=== PATIENT | female | born 1950 | race Caucasian/White ===

== ENCOUNTER → 2016-06-11 | Outpatient (CLI) | payer BC ==
[~2016-06-11] MED LIST: CHOLTAB3 PO; CPRDOTS OT
--- NOTE | 2016-06-11 16:45 | MAMMOGRAPHY REPORT ---
BILATERAL DIGITAL SCREENING MAMMOGRAM TOMOSYNTHESIS WITH CAD: 06/11/2016 CLINICAL HISTORY: Routine screening. Patient has no complaints. TECHNIQUE: Breast tomosynthesis in addition to standard 2D mammography was performed. Current study was also evaluated with a Computer Aided Detection (CAD) system. COMPARISON: Comparison is made to exams dated: 06/04/2015 mammogram, 05/03/2014 mammogram, 05/05/2011 bud mogram, and 05/06/2009 mammogram - [facility]. BREAST COMPOSITION: There are scattered areas of fibroglandular density in both breasts. FINDINGS: No suspicious masses, calcifications, or areas of architectural distortion are noted in e ither breast. There has been no significant interval change compared to prior exams. Scattered bilat eral benign-appearing calcifications are not significantly changed. IMPRESSION: ACR BI-RADS CATEGORY 2: BENIGN There is no mammographic evidence of malignancy. A 1 year screening mammogram is recommended. The p atient will receive written notification of the results. Approximately 10% of breast cancers are not detected with mammography. A negative mammographic repor t should not delay biopsy if a clinically suggestive mass is present. Denita Unger M.D. ah/:06/11/2016 16:08:22 Warehouse Administrative Assistant: Anna LLANES(Rusty)(M), [facility] letter sent: Normal 1/2 BI-RADS Code: ACR BI-RADS Category 2: Benign
== END | disposition home or self-care (01) ==
LOC: C.MAMM 15:07
PROVIDERS: ATTEND Family Medicine
DX: Z12.31 Encounter for screening mammogram for malignant neoplasm of breast (principal)

== ENCOUNTER → 2016-10-29 | Outpatient (CLI) | payer BC ==
[2016-10-29 17:24] LABS: ALT/SGPT 43 U/L (12-78); BLOOD UREA NITROGEN 16 mg/dl (7-18); BUN/CREATININE RATIO 16.4 (10-20); CALCIUM 9.4 mg/dl (8.5-10.1); CARBON DIOXIDE 27 mmol/L (21-32); CHLORIDE 105 mmol/L (98-107); CHOLESTEROL 208 mg/dl (0-200); GLUCOSE 80 mg/dl (70-99); POTASSIUM 4.2 mmol/L (3.5-5.1); SODIUM 139 mmol/L (136-145)
[2016-10-29 17:37] LABS: ALB/GLOB RATIO 0.8 (0.9-2); ALKALINE PHOSPHATASE 84 U/L (45-117); AST/SGOT 22 U/L (15-37); CHOLESTEROL/HDL RATIO 4.2; HDL CHOLESTEROL 50 mg/dl; LDL CHOLESTEROL CALCULATED 115 mg/dl; TRIGLYCERIDES 213 mg/dl (0-150); VERY LOW DENSITY LIPOPROT CALC 43 mg/dl
[2016-10-30 05:44] LABS: ESTIMATED AVERAGE GLUCOSE 120 mg/dl; HA1C FLAG Normal (Normal)
== END | disposition home or self-care (01) ==
LOC: C.LABBC 14:24
PROVIDERS: ATTEND Family Medicine
DX: E78.5 Hyperlipidemia, unspecified (principal); R73.03 Prediabetes; E03.9 Hypothyroidism, unspecified; E55.9 Vitamin D deficiency, unspecified

== ENCOUNTER → 2017-03-22 | Outpatient (CLI) | payer BC ==
[2017-03-22 11:27] LABS: ESTIMATED AVERAGE GLUCOSE 120 mg/dl; HA1C FLAG Normal (Normal)
[2017-03-22 11:39] LABS: ALB/GLOB RATIO 0.8 (0.9-2); ALKALINE PHOSPHATASE 94 U/L (45-117); ALT/SGPT 48 U/L (12-78); AST/SGOT 30 U/L (15-37); BLOOD UREA NITROGEN 22 mg/dl (7-18); BUN/CREATININE RATIO 23.7 (10-20); CALCIUM 8.7 mg/dl (8.5-10.1); CARBON DIOXIDE 26 mmol/L (21-32); CHLORIDE 105 mmol/L (98-107); CREATININE 0.94 mg/dl (0.60-1.20); GLUCOSE 98 mg/dl (70-99); HDL CHOLESTEROL 55 mg/dl; POTASSIUM 4.2 mmol/L (3.5-5.1); SODIUM 140 mmol/L (136-145)
[2017-03-22 11:51] LABS: CHOLESTEROL 216 mg/dl (0-200); CHOLESTEROL/HDL RATIO 3.9; LDL CHOLESTEROL CALCULATED 120 mg/dl; TRIGLYCERIDES 204 mg/dl (0-150); VERY LOW DENSITY LIPOPROT CALC 41 mg/dl
== END | disposition home or self-care (01) ==
LOC: C.LABBC 07:22
PROVIDERS: ATTEND Nurse Practitioner Family
DX: R70.0 Elevated erythrocyte sedimentation rate (principal); E78.5 Hyperlipidemia, unspecified; R73.03 Prediabetes; E03.9 Hypothyroidism, unspecified; E55.9 Vitamin D deficiency, unspecified

== ENCOUNTER → 2017-05-03 | Outpatient (CLI) | payer BC | END | disposition home or self-care (01) | LOC: C.MAMM 08:03 | PROVIDERS: ATTEND Family Medicine | DX: M81.0 Age-related osteoporosis without current pathological fracture (principal) ==

== ENCOUNTER → 2017-06-14 | Outpatient (CLI) | payer BC ==
--- NOTE | 2017-06-15 15:23 | MAMMOGRAPHY REPORT ---
BILATERAL DIGITAL SCREENING MAMMOGRAM TOMOSYNTHESIS WITH CAD: 06/14/2017 CLINICAL HISTORY: Routine screening. Patient has no complaints. TECHNIQUE: Breast tomosynthesis in addition to standard 2D mammography was performed. Current study was also evaluated with a Computer Aided Detection (CAD) system. COMPARISON: Comparison is made to exams dated: 06/11/2016 mammogram, 06/04/2015 mammogram, 05/03/2014 bud mogram, 05/05/2011 mammogram, 05/06/2009 mammogram - [facility], and 10/26/2007. BREAST COMPOSITION: There are scattered areas of fibroglandular density in both breasts. FINDINGS: The parenchymal pattern is similar to prior mammograms. There are scattered benign-appear ing round calcifications in the breasts. No developing mass, architectural distortion or cluster of suspicious microcalcifications is seen. IMPRESSION: ACR BI-RADS CATEGORY 2: BENIGN There is no mammographic evidence of malignancy. A 1 year screening mammogram is recommended. The pa tient will receive written notification of the results. Approximately 10% of breast cancers are not detected with mammography. A negative mammographic report should not delay biopsy if a clinically suggestive mass is present. Hannah Damico M.D. ay/:06/14/2017 17:29:15 Taxi Cab Driver: Mariah LLANES(Rusty)(Nancie), [facility] letter sent: Normal 1/2 BI-RADS Code: ACR BI-RADS Category 2: Benign
== END | disposition home or self-care (01) ==
LOC: C.MAMM 10:39
PROVIDERS: ATTEND Family Medicine
DX: Z12.31 Encounter for screening mammogram for malignant neoplasm of breast (principal)

== ENCOUNTER → 2017-09-14 | Outpatient (CLI) | payer BC ==
[2017-09-14 11:37] LABS: ALBUMIN 3.6 gm/dl (3.4-5.0); ALKALINE PHOSPHATASE 83 U/L (45-117); ALT/SGPT 55 U/L (12-78); AST/SGOT 36 U/L (15-37); BLOOD UREA NITROGEN 25 mg/dl (7-18); CALCIUM 9.2 mg/dl (8.5-10.1); CARBON DIOXIDE 26 mmol/L (21-32); CHOLESTEROL 236 mg/dl (0-200); CREATININE 1.03 mg/dl (0.60-1.20); GLUCOSE 99 mg/dl (70-99); LDL CHOLESTEROL CALCULATED 132 mg/dl; POTASSIUM 4.2 mmol/L (3.5-5.1); SODIUM 140 mmol/L (136-145); TOTAL PROTEIN 8.3 gm/dl (6.4-8.2)
[2017-09-14 12:03] LABS: HEMOGLOBIN A1C 5.8 % (4.5-5.6)
== END | disposition home or self-care (01) ==
LOC: C.LABBC 08:51
PROVIDERS: ATTEND Family Medicine
DX: E78.5 Hyperlipidemia, unspecified (principal); E03.9 Hypothyroidism, unspecified; M81.0 Age-related osteoporosis without current pathological fracture; R73.03 Prediabetes; E55.9 Vitamin D deficiency, unspecified

== ENCOUNTER 2018-10-24 10:53 | Observation (INO) ==
--- NOTE | 2018-10-12 10:02 | PAT Medication Instructions ---
Medication Instructions Date of Service October 12, 2018 Home Medications ketoconazole 1 applic TOPICAL Q3D NEEDED mv-mn-folic ac-vit K-herb 289 [Alive Once Daily Women 50 Plus] 2 tab PO QAM zq-mm-xxhw-FA-herbal cmplx#190 [Vitamin D3 Complete] 1 tab PO BID STOP taking 24 hours before surgery ketoconazole 1 applic TOPICAL Q3D NEEDED DO NOT take the morning of surgery mv-mn-folic ac-vit K-herb 289 [Alive Once Daily Women 50 Plus] 2 tab PO QAM ku-qj-rkkl-FA-herbal cmplx#190 [Vitamin D3 Complete] 1 tab PO BID Take morning of surgery NOTHING TO EAT OR DRINK AFTER MIDNIGHT Other Notes If you have any questions please call us at [phone] or [phone] or [phone] or [phone]
--- NOTE | 2018-10-12 14:26 | Anesthesiology Consultation ---
Date of Service October 12, 2018 Assessment & Plan (1) Encounter for pre-operative examination: Chart Review Chart Review: Acceptable Risk for Surgery and Patient seen in Pre Admission Testing Consults Requested none Teaching & Discussion Pre-Anesthesia Teaching/Discussion Notes: Instructed NPO after midnight before surgery, except medications with 15 cc of water. Medication instructions provided according to the PAT guidelines. History Surgery Operation Date: 10/24/18 10:25 Proposed Procedures p Transurethral Resection Bladder Tumor, With or Without Multiple Cup Biopsies, Possible Mitomyocin C - Triston Mcdonald II, DO Height/Weight Height: 5 ft 3 in Weight: 80.286 kg Allergies Allergy/AdvReac Type Severity Reaction Status Date / Time No Known Allergies Allergy Mild NONE Verified 10/11/18 13:43 Medications Home Medications Medication Instructions Recorded Confirmed Last Taken ketoconazole 1 applic TOPICAL Q3D PRN 10/11/18 10/11/18 Unknown mv-mn-folic ac-vit K-herb 289 2 tab PO QAM 10/11/18 10/11/18 Unknown [Alive Once Daily Women 50 Plus] im-zt-auhg-FA-herbal cmplx#190 1 tab PO BID 10/11/18 10/11/18 Unknown [Vitamin D3 Complete] Past Medical History Medical History Hx of vertigo Osteopenia Urinary urgency Exercise / Class Metabolic Activity II 4-5 Yardwork/Stairs/Walk up hill (Tries to do 30 minutes of walking, stretching, etc per day. Able to climb FOS. Denies CP or SOB. ) Past Surgical History Surgical History History of surgery REMOVAL LIPOMA BACK Hx of appendectomy Hx of cholecystectomy 02/07/12 - 7.5mm ETT Hx of total hysterectomy Past Anesthesia History No Hx of Anesthesia Complications and No Family Hx of Anesthesia Complications Does state that she is sensitive to anesthesia and needs lower doses and wakes up slowly. History of PONV No Hx of PONV and No Hx of Motion Sickness Social History Smoking Status: Never smoker Do You Dip or Chew Tobacco: No Hx Alcohol Use: No Hx Substance Use: No Review of Systems Patient denies chest pain, shortness of breath, dyspnea on exertion, joint pain, reflux, cough, wheezing, palpitations. Physical Exam Vital Signs BP: 128/84 P: 77 R: 16 T: 98.5 SPO2: 96% on RA Constitutional + obese ENMT Mouth: + macroglossia Thyromental Distance: > or= 3.5 Finger Breadths (4) Mallampati Class: II Neck normal visual inspection and trachea midline; neck extension not limited Respiratory normal respiratory effort Auscultation: lungs clear to auscultation bilaterally Cardiovascular Rate/Rhythm: regular rate and regular rhythm Heart Sounds: no murmur Vessels: no carotid bruit Neurologic moves all extremities Psychiatric Orientation: alert and oriented x 3 Testing Laboratory Results 10/12/18 13:54 10/12/18 13:54 Electrocardiogram Date: 10/12/18 Findings: + NSR @ (71) Incomplete RBBB When compared with ECG of 02/01/12, Nonspecific T wave abnormality no longer evident in anterior leads. Chest X-Ray Date: 10/12/18 Findings: + NAD
[2018-10-12 14:51] LABS: Basophils # (auto) 0.08 K/uL (0-0.2); Basophils % (auto) 1.7 %; Eosinophils # (auto) 0.26 K/uL (0-0.5); Eosinophils % (auto) 5.4 %; Hematocrit (blood only) 40.7 % (37-47); Immature Granulocytes # (auto) 0.01 K/uL (0.00-0.02); Immature Granulocytes % (auto) 0.2 %; Lymphocytes # (auto) 1.68 K/uL (1.2-3.4); Lymphocytes % (auto) 35.1 %; Mean Corpuscular Hgb Conc 34.4 g/dL (32-36); Mean Corpuscular Volume 91.3 fL (80-100); Mean Platelet Volume 9.9 fL (7.4-10.4); Monocytes # (auto) 0.58 K/uL (0.11-0.59); Monocytes % (auto) 12.1 %; Neutrophils # (auto) 2.17 K/uL (1.4-6.5); Neutrophils % (auto) 45.5 %; Platelet Count 270 K/uL (130-400); RDW Coefficient of Variation 12.7 % (11.5-14.5); RDW Standard Deviation 42.6 fL (36.4-46.3); Red Blood Count 4.46 M/uL (4.2-5.4); White Blood Count 4.78 K/uL (4.8-10.8)
[2018-10-12 14:58] LABS: BUN Creatinine Ratio 23.7 (10-20); Calcium 9.4 mg/dl (8.5-10.1); Creatinine Clr Calc Pharmacy 51.5 ml/min; Est GFR (African American) 61.9; Est GFR (Non-African American) 53.5; Potassium 4.3 mmol/L (3.5-5.1)
--- NOTE | 2018-10-12 14:58 | XRay Report ---
XR chest Pre-admission PA/Lat CLINICAL HISTORY: Preoperative evaluation COMPARISON STUDY: No previous studies for comparison. FINDINGS: Lung volumes are normal. There is no pneumothorax or pleural effusion. There is no consolid ation or evidence for pulmonary edema. Cardiac size is normal. Mediastinal contours are unremarkable. There are cholecystectomy clips. IMPRESSION: No acute cardiopulmonary findings. Electronically signed by: Morro Pham M.D. 10/12/2018 2:57 PM
[~2018-10-24 10:53] MED LIST changes: -CHOLTAB3 PO; +CIPROFLOXACIN 400 MG/200 ML BAG IV SCH; -CPRDOTS OT; +LR 15ML/HR IV SCH; +OR USE ONLY INSTIL SCH
[2018-10-24] MEDS ORDERED: MIDAZOLAM HCL 1 MG/ML 2ML VIAL ONE (11:08)
[2018-10-24] MEDS ORDERED: fentaNYL citrate 100 MCG/2 ML VIAL ONE (11:09)
[2018-10-24] MEDS ORDERED: LIDOCAINE HCL 2% 2 ML VIAL/AMP(20MG/ML) INFIL ONE (11:10)
[2018-10-24] MEDS ORDERED: PROPOFOL IV EMULSION 10 MG/ML 20 ML VIAL IV ONE ×2 (11:10→12:42)
[2018-10-24] MEDS ORDERED: ONDANSETRON INJ 2 MG/ML 2 ML VIAL ONE (11:13)
--- NOTE | 2018-10-24 11:19 | History & Physical Bridge Note ---
Date of Service October 24, 2018 History & Physical Bridge Note I have examined the patient, reviewed the History & Physical and in the interval since the performance of the History & Physical I have noted the following changes of clinical significance: no changes noted
[2018-10-24] MEDS ORDERED: FLUMAZENIL 0.1 MG/1 ML 10 ML VIAL IV PRN (11:44)
[2018-10-24] MEDS ORDERED: fentaNYL citrate 100 MCG/2 ML VIAL IV PRN (11:44)
[2018-10-24] MEDS ORDERED: ATROPINE SULFATE 0.1 MG/ML 10ML SYR IV PRN (11:44)
[2018-10-24] MEDS ORDERED: ePHEDrine sulfate 50 MG/ML AMP IV PRN (11:44)
[2018-10-24] MEDS ORDERED: NALOXONE HCL 0.4 MG/1 ML VIAL/CARP IV PRN (11:44)
[2018-10-24] MEDS ORDERED: PROMETHAZINE HCL 12.5 MG in SODIUM CHLORIDE 0.9% 50 ML IV PRN (11:44)
[2018-10-24] MEDS ORDERED: LABETALOL HCL IV 5 MG/ML 20ML IV PRN (11:44)
[2018-10-24] MEDS ORDERED: ONDANSETRON INJ 2 MG/ML 2 ML VIAL IV PRN ×2 (11:44→17:05)
[2018-10-24] MEDS ORDERED: IOTHALAMATE MEGLUMINE II 17.2% 250 ML VIAL ONE (12:34)
[2018-10-24] MEDS ORDERED: ACETAMINOPHEN 1000 MG/100 ML IV IV ONE (12:45)
[2018-10-24] MEDS ORDERED: ePHEDrine sulfate 50 MG/ML SYR ONE (14:38)
--- NOTE | 2018-10-24 14:41 | Fluoroscopy Report ---
FL retrograde includes kub CLINICAL HISTORY: RETROGRADE COMPARISON STUDY: CT of the abdomen and pelvis October 05, 2018. FLUOROSCOPY TIME: 5 seconds. FLUOROSCOPIC IMAGES: 4. FINDINGS: These images demonstrate cannulation of the left ureter with placement of a left ureteral s tent. The known bladder mass shown on CT of October 05, 2018 is not well visualized on this exam due to t echnique. IMPRESSION: Fluoroscopic images from left retrograde exam with ureteral stent insertion. Electronically signed by: Morro Pham M.D. 10/24/2018 2:39 PM
--- NOTE | 2018-10-24 14:56 | Post Operative Brief Note ---
Immediate Post Op Note v1 Date of Surgery October 24, 2018 Pre & Post Diagnosis Operation Date: 10/24/18 12:10 Pre-Op Diagnosis: Bladder Tumor; Abnormal Cytology Post-Op Diagnosis: Bladder Tumor; Abnormal Cytology Procedure Operation Date: 10/24/18 12:10 Actual Procedures p Transurethral Resection Bladder Tumor, Large and Left retrograde pyelograms with stent placement - Triston Mcdonald II, DO Surgeon Triston Mcdonald, II, DO Clerical Administrator None Estimated Blood Loss 15 Findings Consistent with Post-Op Diagnosis Extremely large and obstructing tumor of the left trigone, entire lateral wall, and dome. Tumor approx 15 cm in widest demenision and involving left UO and bladder neck. Multiple additional large tumors on posterior wall Specimens Tumor deep Tumor lateral wall (bulk) Tumor posterior wall Drains Cavanaugh Catheter Anesthesia Type General Complications none Disposition Disposition: Recovery Room Overlapping Procedure I was present for: the critical portions of procedure. I was immediately available: during the entire case. Back up surgeon: was not required during procedure.
--- NOTE | 2018-10-24 15:46 | Anesthesiology Progress Note ---
Date of Service October 24, 2018 Anesthesia Post Procedure Vital Signs Vital Signs: Temp Pulse Resp BP Pulse Ox 10/24/18 15:35 63 19 105/64 100 10/24/18 15:25 69 19 104/67 100 10/24/18 15:15 72 16 108/76 100 10/24/18 15:05 36 C L 74 17 115/72 99 10/24/18 11:49 37 C 84 20 146/86 H 98 Transfer of Care Handoff Completed per policy Notes Mental Status: alert / awake / arousable Patient Amnestic to Procedure: Yes Nausea / Vomiting: adequately controlled Pain: adequately controlled Airway Patency, RR, SpO2: stable & adequate BP & HR: stable & adequate Hydration State: stable & adequate Anesthetic Complications: no major complications apparent and Pt Satisfied with anesthetic care
[2018-10-24] MEDS ORDERED: ONDANSETRON INJ 2 MG/ML 2 ML VIAL IV STA (16:41)
--- NOTE | 2018-10-24 16:47 | Operative Report ---
Post Operative Report Pre & Post Diagnosis Operation Date: 10/24/18 12:10 Pre-Op Diagnosis: Bladder Tumor; Abnormal Cytology Post-Op Diagnosis: Bladder Tumor; Abnormal Cytology Procedure Operation Date: 10/24/18 12:10 Actual Procedures p Transurethral Resection Large Bladder Tumor, Left ureteral stent insertion, Left retrograde pyelogram(Not Applicable) - Triston Mcdonald II, DO Surgeon Triston Mcdonald, II, DO Butane Compressor Operator None Estimated Blood Loss 15 Findings Consistent with Post-Op Diagnosis Extremely large bladder tumor accross the anterior, dome, left lateral wall, and base of bladder with involvement of left UO. This main tumor took up just under half of the entire bladder surface area. Concern for tumor possibly penetrating into deep tissues. Multiple other tumors throughout remainder of bladder. Due to large resection of the main tumor, these tumors were not resected. After resection, no palpable tumor on bimanual exam. Specimens Left Tumor bulk Left Tumor base/deep resection Left Posterior wall tumor Drains 6 Fr Multilength on left Anesthesia Type General Complications none Disposition Disposition: Recovery Room Indications Tumor found by CT with positive cytology. Risks and benefits discussed at length. Description of Procedure Patient was consented and brought back to the operating room. Patient was placed under anesthesia in the supine position and moved to the dorsal lithotomy position. Patient was prepped and draped in the regular sterile fashion. A time out was completed. A 30degree Cystoscope was placed into the bladder and the entire bladder was examined. Immediately an extremely large tumor was noted that obliterated visualization of the bladder. Majority of bladder volume was filled with tumor even with distension. The UO's were not identified due to the extremely large mass. The resection scope was placed. The anterior portion of the tumor was resected. The tumor was found to be extremely vascular and required multiple bleeding vessels to be fulgurated. Resection continued down along the lateral wall. Tumor did appear to be penetrating deeply on the lateral wall tissues. The main tumor was debulked after considerable resection. At this point, the bladder was able to be better assessed. The tumor mass had taken the majority of the anterior bladder, the left dome, the entire left lateral wall and the entire trigone of the left side with some of the posterior bladder wall on the left. Another large tumor approx 4 cm was in the posterior wall. Multiple small tumors were found throughout the remainder of the bladder. Due to the very large volume already, resection, I decided to focus of this main tumor and to hold on further resection of these other tumors. A deep resection was taken to attempt to better determine depth and sent separately. The bulk of the tumor was sent separately as well. Another region of the posterior wall portion of the tumor was resected and sent separately. The entire bed was fulgurated. The larger tumor vessels were assessed and cauterized to attempt to continue control of bleeding. A few of the smaller tumors were destroyed and fulgurated as well. The resection require resection of the left UO. The scope was exchanged and a retrograde pyelogram was completed. A 6 Fr multilength was then placed and allowed to drain. The entire area was inspected. Due to the deep resection, I did not place mitomycin which had been planned. A 22 Fr Catheter was placed and the bladder was emptied after The scope was removed. The patient was cleaned, aroused from anesthesia, and transferred to the pacu in stable condition having tolerated the procedure well with no complications. I was present and participated in all aspects of the procedure. The patient will be monitored in the PACU until transferred. I attest to the content of the Intraoperative Record and any orders documented therein. Any exceptions are noted below.
[2018-10-24] MEDS ORDERED: BELLADONNA/OPIUM SUPP 60 MG SUPP PR PRN (17:05)
[2018-10-24] MEDS ORDERED: ACETAMINOPHEN 1,000 MG/100 ML VIAL IV PRN (17:05)
[2018-10-24] MEDS ORDERED: PHENAZOPYRIDINE HCL 200 MG TAB PO PRN (17:05)
[2018-10-24] MEDS ORDERED: CEFAZOLIN 2000MG 2,000 MG/15 ML SYR IV SCH (17:15)
[2018-10-24] MEDS ORDERED: KETOCONAZOLE 2% CR 15 GM TUBE EXT PRN (18:12)
[2018-10-24] MEDS: SODIUM CHLORIDE 0.9% 1000ML 1,000 ML IV SCH (18:23)
[2018-10-24 18:31] LABS: Basophils # (auto) 0.02 K/uL (0-0.2); Basophils % (auto) 0.2 %; Eosinophils # (auto) 0.01 K/uL (0-0.5); Eosinophils % (auto) 0.1 %; Hematocrit (blood only) 35.2 % (37-47); Hemoglobin 11.6 g/dL (12.0-16.0); Immature Granulocytes # (auto) 0.02 K/uL (0.00-0.02); Immature Granulocytes % (auto) 0.2 %; Lymphocytes # (auto) 1.09 K/uL (1.2-3.4); Lymphocytes % (auto) 10.3 %; Mean Corpuscular Volume 93.1 fL (80-100); Mean Platelet Volume 9.8 fL (7.4-10.4); Monocytes # (auto) 0.37 K/uL (0.11-0.59); Monocytes % (auto) 3.5 %; Neutrophils # (auto) 9.07 K/uL (1.4-6.5); Neutrophils % (auto) 85.7 %; Platelet Count 212 K/uL (130-400); RDW Coefficient of Variation 12.9 % (11.5-14.5); RDW Standard Deviation 43.6 fL (36.4-46.3); Red Blood Count 3.78 M/uL (4.2-5.4); White Blood Count 10.58 K/uL (4.8-10.8)
[2018-10-24 18:51] LABS: Albumin Level 2.7 gm/dl (3.4-5.0); Calcium 7.7 mg/dl (8.5-10.1); Creatinine Clr Calc Pharmacy 59.1 ml/min; Est GFR (African American) 73.3; Est GFR (Non-African American) 63.2; Potassium 4.1 mmol/L (3.5-5.1)
[2018-10-24 18:54] LABS: Albumin Globulin Ratio 0.8 (0.9-2); Bilirubin,Total 0.4 mg/dl (0.2-1); Globulin 3.4 gm/dl (2.5-4.0); Total Protein 6.1 gm/dl (6.4-8.2)
[2018-10-24] MEDS ORDERED: BISACODYL 10 MG SUPP PR PRN (19:11)
[2018-10-24] MEDS: CEFAZOLIN 2000MG 2,000 MG/15 ML SYR IV SCH (20:18)
[2018-10-24] MEDS: DOCUSATE SODIUM 100 MG CAP PO SCH (20:19)
[2018-10-24] MEDS ORDERED: NON-FORMULARY MEDICATION (Magnesium 30 MG) PO SCH (21:00)
[2018-10-24] MEDS ORDERED: DOCUSATE SODIUM 100 MG CAP PO SCH (21:00)
[2018-10-25] MEDS: CEFAZOLIN 2000MG 2,000 MG/15 ML SYR IV SCH (03:02)
[2018-10-25] MEDS: SODIUM CHLORIDE 0.9% 1000ML 1,000 ML IV SCH (04:24)
[2018-10-25 08:11] LABS: Basophils # (auto) 0.04 K/uL (0-0.2); Basophils % (auto) 0.4 %; Eosinophils # (auto) 0.12 K/uL (0-0.5); Eosinophils % (auto) 1.3 %; Hematocrit (blood only) 28.9 % (37-47); Hemoglobin 9.6 g/dL (12.0-16.0); Immature Granulocytes # (auto) 0.02 K/uL (0.00-0.02); Immature Granulocytes % (auto) 0.2 %; Lymphocytes # (auto) 1.25 K/uL (1.2-3.4); Lymphocytes % (auto) 13.7 %; Mean Corpuscular Hgb Conc 33.2 g/dL (32-36); Mean Corpuscular Volume 92.6 fL (80-100); Mean Platelet Volume 9.6 fL (7.4-10.4); Monocytes # (auto) 0.78 K/uL (0.11-0.59); Monocytes % (auto) 8.6 %; Neutrophils # (auto) 6.89 K/uL (1.4-6.5); Neutrophils % (auto) 75.8 %; Platelet Count 193 K/uL (130-400); RDW Standard Deviation 43.9 fL (36.4-46.3); Red Blood Count 3.12 M/uL (4.2-5.4)
[2018-10-25] MEDS: DOCUSATE SODIUM 100 MG CAP PO SCH (08:11)
--- NOTE | 2018-10-25 08:11 | Urology Progress Note ---
Date of Service October 25, 2018 Assessment & Plan (1) Bladder tumor: POD #1 s/p Transurethral Resection Large Bladder Tumor, Left ureteral stent insertion Progressing as expected. Will advance diet to regular (new breakfast ordered). Continue to ambulate TID, use of IS. Okay to discharge home as long as she tolerates regular diet. She is to go home with arrieta catheter in place, okay to convert to leg bag. Expected clinical course reviewed. All questions answered. Pt agreeable with plan. Subjective 68yo F POD #1 s/p Transurethral Resection Large Bladder Tumor, Left ureteral stent insertion Doing well this AM. States she felt she was constipated, which was relieved by duclolax suppository. She states "that was my whole issue". Pt did not sleep well but relates this to environment change. Pain controlled. Ambulated in halls multiple times. Complaining of some leaking around arrieta catheter. Denies bladder spasms, flank or bladder pain. Afebrile overnight, VS stable. Labs reviewed - H/H 28 (decreased from 25.2) likely dilutional. Denies n/v/f/c. Denies chest pain, shortness of pain. Denies lower extremity edema. Review of Systems Review of Systems: All systems reviewed & are unremarkable except as noted in HPI & below Physical Exam Physical Exam: A&Ox3 RRR abd soft, nontender arrieta draining light red, scant clots. Results & Data Vital Signs (Past 12 Hours) Vital Signs Temp Pulse Resp BP BP Pulse Ox Pulse Ox 10/25/18 07:25 37.3 C 92 H 16 106/64 99 10/25/18 03:07 36.6 C 100 H 16 98/62 L 95 10/25/18 00:20 97 10/24/18 23:10 36.6 C 79 16 119/69 97
[2018-10-25 08:26] LABS: BUN Creatinine Ratio 13.2 (10-20); Calcium 7.9 mg/dl (8.5-10.1); Creatinine Clr Calc Pharmacy 66.2 ml/min; Est GFR (African American) 83.9; Est GFR (Non-African American) 72.4; Potassium 3.9 mmol/L (3.5-5.1)
--- NOTE | 2018-10-25 08:27 | Anesthesiology Progress Note ---
Date of Service October 25, 2018 Anesthesia Post Procedure Vital Signs Vital Signs: Temp Pulse Resp BP BP Pulse Ox Pulse Ox 10/25/18 07:25 37.3 C 92 H 16 106/64 99 10/25/18 03:07 36.6 C 100 H 16 98/62 L 95 10/25/18 00:20 97 10/24/18 23:10 36.6 C 79 16 119/69 97 10/24/18 19:00 67 18 147/80 H 99 10/24/18 18:00 60 16 132/81 98 10/24/18 17:49 36.3 C L 60 20 133/71 98 10/24/18 16:53 36.3 C L 58 L 18 124/68 96 10/24/18 16:23 59 L 20 110/72 99 10/24/18 15:53 36.1 C L 67 20 120/71 97 10/24/18 15:45 68 19 127/72 96 10/24/18 15:35 63 19 105/64 100 10/24/18 15:25 69 19 104/67 100 10/24/18 15:15 72 16 108/76 100 10/24/18 15:05 36 C L 74 17 115/72 99 10/24/18 11:49 37 C 84 20 146/86 H 98 Notes Mental Status: alert / awake / arousable and participated in evaluation Patient Amnestic to Procedure: Yes Nausea / Vomiting: adequately controlled Pain: adequately controlled Airway Patency, RR, SpO2: stable & adequate BP & HR: stable & adequate Hydration State: stable & adequate Anesthetic Complications: no major complications apparent
[2018-10-25] MEDS ORDERED: [UNRECOGNIZED DRUG - OTHER] PO SCH (09:00)
[2018-10-25] MEDS ORDERED: MULTIVITAMIN PO SCH (09:00)
--- NOTE | 2018-10-25 09:58 | Discharge Summary ---
Date of Service October 25, 2018 Principal Diagnosis Bladder Tumor, abnormal cytology Discharge Exam A&Ox3 RRR abd soft, nontender arrieta draining link red/pink with scant clots Discharge Data Allergies Allergy/AdvReac Type Severity Reaction Status Date / Time alendronate sodium Allergy Verified 10/25/18 09:39 [From Fosamax] Procedures Performed Operation Date: 10/24/18 12:10 Actual Procedures p Transurethral Resection Large Bladder Tumor, With Multiple Cup Biopsies, Left ureteral stent insertion, Left retrograde pyelogram(Not Applicable) - Triston Mcdonald II, DO Ordered Studies 10/24/18 12:35 FL retrograde includes kub Routine Hospital Course (1) Bladder tumor: Presented to [facility] for scheduled TURBT, left ureteral stent placement. She was admitted overnight due to pain control. Very extensive resection performed by Dr. Mcdonald, no complications noted. She is feeling much better this AM, states her pain was largely due to constipation which has been relieved. Labs stable. Ambulating in halls and tolerating diet well. Urine very light red/pink with minimal clots. She will go home with arrieta catheter in place. Expected clinical course reviewed. Total Time Total Time Spent Total Time Spent (In Minutes): 15 Discharge Plan Discharge Items Patient Disposition: Home - Self-Care Reason For Visit: Bladder Tumor; Abnormal Cytology Discharge Diagnosis: bladder tumor; abnormal cytology Discharge Goals: Decrease discomfort, Diagnostic testing, Improve disease control, Improve function and Therapeutic intervention Activity: Resume your previous activity Lifting: No more than 25 pounds Bathing Comment: Shower is okay. No tub baths/hot tubs. Sexual Activity: Wait until after follow-up appointment Exercise/Sports: Wait until after follow-up appointment Driving/Machine Use: Resume 1 day after discharge Driving/Machine Use Comment: Do not drive while taking prescription pain control Non-emergency contact: Urologist Call non-emergency contact if: you have any medication questions, your pain is not controlled, your pain is worsening, your pain is unusual for you, your pain is concerning for you, you have a fever and your temperature is above 101 Follow-up/Referrals: Laura Rosas DO [Primary Care Provider] - Diet: Regular Addtl Provider Instructions: Please take all medications as prescribed and keep all follow-ups as scheduled. Please call our office at [phone] with any questions, concerns or need to reschedule appointments for any reason. Tips for your recovery at home: Once youre home, be as active as you comfortably can. We encourage you to walk around, but avoid exercise or heavy activities until youre feeling better. You can likely return to your normal routine in a couple days. * You may also experience some pelvic discomfort. If you go home with a catheter, please wash with soapy water and a fresh washcloth twice daily. We recommend mild bar soap like Dial or Dove. Pain or burning with urination is normal for a few days after your procedure while your bladder heals. Biopsy results will be discussed at your follow-up office visit. Please take all medications as prescribed and keep all follow-ups as scheduled. Please call our office at [phone] with any questions, concerns or need to reschedule appointments for any reason. We are happy to assist you. While you have a ureteral stent in place: Some discomfort is normal. Certain movements may trigger pain or a feeling that you need to urinate. You may also feel mild soreness or pressure before or during urination. These symptoms should go away a few days after the stent is removed. Your urine may be slightly pink or red. This is due to bleeding caused by minor irritation from the stent. This may happen on and off while you have the stent, it is not harmful and is to be expected. Medication to help minimize discomfort or bladder spasms, or to prevent infection may be prescribed. Take this as directed. Drink plenty of fluids to help flush out your urinary tract. If you go home with a catheter, wash with soapy water and a fresh washcloth twice daily. We recommend mild bar soap such as Dial or Dove. When to call [facility] at [phone]: Your urine contains heavy blood clots You are constantly leaking urine Fever of 101F or higher, chills, nausea, or vomiting Your pain is not relieved with medication The end of the stent comes out of your urethra Trouble urinating or inability to urinate . Prescriptions: New oxycodone-acetaminophen [Percocet] 5-325 mg tablet 1 tab PO TID PRN (Reason: pain) Qty: 14 RF: 0 ciprofloxacin HCl 500 mg tablet 500 mg PO Q12H Qty: 14 RF: 0 phenazopyridine [Pyridium] 200 mg tablet 200 mg PO TID PRN (Reason: pain) Qty: 30 RF: 0 docusate sodium [Colace] 100 mg capsule 100 mg PO BID Qty: 60 RF: 0 oxybutynin chloride 5 mg tablet 5 mg PO BID PRN (Reason: bladder spasms) Qty: 30 RF: 0 Continued Alive Once Daily Women 50 Plus 800-100 mcg Tablet 2 tab PO QAM RF: 0 ketoconazole 1 % Shampoo 1 applic TOPICAL Q3D PRN (Reason: SKIN ISSUES) RF: 0 magnesium 30 mg Tablet 30 mg PO BID RF: 0 Discontinued aspirin 81 mg Tablet,Chewable 81 mg PO DAILY RF: 0 No Action aspirin 81 mg tablet,chewable 81 mg PO DAILY RF: 0 cholecalciferol (vitamin D3) 5,000 unit tablet 5,000 unit PO DAILY RF: 0 Stand-Alone Forms: Anesthesia/Sedation, Adult, [facility] [employer], Opioid Pain Management Krames/Other Patient Handouts: Oxycodone Hydrochloride Acetaminophen Oral tablet, Oxybutynin Chloride Oral tablet, Ciprofloxacin Hydrochloride Oral tablet extended-release, Docusate Sodium Sennosides Oral tablet, Phenazopyridine Hydrochloride Oral tablet, Surgery Prevent DVT After, Leg Bag Care Dc Discharge Orders: Discharge Order (Routine); Ordered 10/25/18 Ordered By: Sultana Wilson Admission Data Admit Date/Time: 10/24/18 17:05 Attending Provider: Triston Mcdonald II Admit Provider: Triston Mcdonald II Primary Care Provider: Laura Rosas Service: Surgical Services Other Interventions: Discharge Summary Assessment (RN) Last Done: 10/25/18 11:05 Pending Studies at Discharge: Yes Studies:: pathology DC Date/Time DO NOT enter until pt leaves facility: 10/25/18 13:06
== END 2018-10-25 13:06 | disposition home or self-care (01) ==
LOC: ASU 10:53 → 3W 10:53 → ASU 17:55
DX: Z79.899 Other long term (current) drug therapy; Z79.82 Long term (current) use of aspirin; E78.5 Hyperlipidemia, unspecified; C67.9 Malignant neoplasm of bladder, unspecified; Z88.8 Allergy status to other drugs, medicaments and biological substances